=== PATIENT | male | born 1980 | race American Indian/Alaskan Native ===

== ENCOUNTER 2019-08-24 07:42 | Emergency (ER) | payer MEDICAID, OTHER ==
[2019-08-24] MEDS ORDERED: SODIUM CHLORIDE 0.9% 500 ML 500 ML IV ONE (08:04)
--- NOTE | 2019-08-24 08:33 | XRay Report ---
CHEST 2 VIEWS INDICATION: possible Sepsis. COMPARISON: 07/08/2013. FINDINGS: Support devices: None. Heart: Within normal limits. Lungs/Pleura: No acute air space or interstitial disease. No significant pleural effusion. IMPRESSION: No acute findings. Signer Name: Fran Zazueta MD Signed: 08/24/2019 8:29 AM Workstation Name: [id number]
[2019-08-24 08:34] LABS: Basophils % (Auto) 0.1 % (0.0-1.8); Hematocrit 51.9 % (35.5-45.6); Hemoglobin 17.3 gm/dl (11.8-15.2); Lymphocytes # (Auto) 0.5 K/mm3 (1.2-5.4); Lymphocytes % (Auto) 5.9 % (13.4-35.0); Mean Corpuscular HGB Conc 33 % (32-34); Mean Corpuscular Volume 98 fl (84-94); Monocytes # (Auto) 0.6 K/mm3 (0.0-0.8); Platelet Count 177 K/mm3 (140-440); Red Blood Count 5.31 M/mm3 (3.65-5.03); Red Cell Distribution Width 13.5 % (13.2-15.2)
[2019-08-24 08:40] LABS: INR 1.08 (0.87-1.13)
[2019-08-24] MEDS ORDERED: methylPREDNISolone Sod Succinate 125 MG/2 ML INJ IV ONE (08:58)
[2019-08-24] MEDS ORDERED: diphenhydrAMINE 50 MG/ML VIAL IV ONE (08:58)
[2019-08-24] MEDS ORDERED: FAMOTIDINE 20 MG/2 ML INJ IV ONE (08:58)
[2019-08-24] MEDS ORDERED: SODIUM CHLORIDE 0.9% 1000 ML 1,000 ML IV ONE (08:59)
[2019-08-24 09:00] LABS: Alanine Aminotransferase 27 units/L (7-56); Albumin 4.6 g/dL (3.9-5); BUN/Creatinine Ratio 6; Blood Urea Nitrogen 9 mg/dL (9-20); Hemolysis Index 3
[2019-08-24] MEDS ORDERED: IPRATROPIUM 0.02% NEBU 2.5 ML IH ONE (09:15)
[2019-08-24] MEDS ORDERED: LEVALBUTEROL 1.25 MG/3 ML NEB IH ONE (09:15)
--- NOTE | 2019-08-24 09:34 | Emergency Department Report ---
HPI - General Chief Complaint: Dental/Oral Time Seen by Provider: 08/24/19 08:45 - HPI HPI: 39-year-old -[place] male presents to the emergency department with complaint of dental pain and what appears to be an allergic reaction. The patient has been having pain to the left upper posterior jaw/teeth for the past 2-3 days. For this reason he went to [facility] emergency Department yesterday and says that he was prescribed moxifloxacin. He took his first dose of this antibiotic last night and began having swelling of his lips and swelling of his face. He denies any swelling of the tongue, difficulty swallowing, shortness of breath. He did also start having some red itchy bumps to the body. Patient has known allergies to penicillin, vancomycin, clindamycin and azithromycin. Previously was unaware of any allergy to the fluoroquinolone class. He did not take anything for his symptoms today prior to presentation. The patient presented with a very fast heart rate at triage and a code sepsis was initiated prior to my shift beginning. Patient is afebrile. He denies any chest pain or shortness of breath. ED Past Medical Hx - Past Medical History Hx Hypertension: No Hx Congestive Heart Failure: No Hx Diabetes: No Hx Asthma: No Hx COPD: No Hx Tuberculosis: No - Surgical History Hx Pacemaker: No Hx Internal Defibrillator: No - Social History Smoking Status: Never Smoker Substance Use Type: None - Medications Home Medications: Home Medications Medication Instructions Recorded Confirmed Last Taken Type Doxycycline Monohydrate 100 mg PO BID #14 capsule 08/24/19 Unknown Rx predniSONE [Deltasone] 20 mg PO QDAY #3 tab 08/24/19 Unknown Rx ED Review of Systems ROS: Stated complaint: ALLERGIC REACTION Other details as noted in HPI Comment: All other systems reviewed and negative Constitutional: denies: chills, fever Eyes: denies: eye pain, vision change ENT: other (lip and facial swelling). denies: ear pain, throat pain Respiratory: denies: cough, shortness of breath Cardiovascular: denies: chest pain, palpitations Gastrointestinal: denies: abdominal pain, vomiting Genitourinary: denies: dysuria, discharge Musculoskeletal: denies: back pain, arthralgia Skin: rash, pruritus Neurological: denies: headache, weakness Physical Exam - Physical Exam Vital Signs: Vital Signs 08/24/19 08/24/19 07:48 08:49 Temperature 99.3 F Pulse Rate 153 H 120 H Respiratory 16 19 Rate Blood Pressure 121/81 Blood Pressure 132/82 [Right] O2 Sat by Pulse 96 98 Oximetry Physical Exam: GENERAL: The patient is well-developed well-nourished. HEENT: Normocephalic. Atraumatic. Patient has moist mucous membranes. Patient has a broken left upper posterior molar and there is some tenderness to palpation around the tooth and gumline but no visible or palpable abscess. No drooling or trismus. There is very mild right upper lip swelling. EYES: Extraocular motions are intact. Pupils equal and reactive to light bilaterally. NECK: Supple. Trachea is midline CHEST/LUNGS: Clear to auscultation. There is no respiratory distress noted. HEART/CARDIOVASCULAR: Regular. There is mild to moderate tachycardia. ABDOMEN: Abdomen is soft, nontender. Patient has normal bowel sounds. There is no abdominal distention. SKIN: Skin is warm and dry. NEURO: The patient is awake, alert, and oriented. The patient is cooperative. The patient has no focal neurologic deficits. Normal speech. MUSCULOSKELETAL: There is no tenderness or deformity. There is no evidence of acute injury. ED Course Vital Signs 08/24/19 08/24/19 07:48 08:49 Temperature 99.3 F Pulse Rate 153 H 120 H Respiratory 16 19 Rate Blood Pressure 121/81 Blood Pressure 132/82 [Right] O2 Sat by Pulse 96 98 Oximetry ED Medical Decision Making - Lab Data Result diagrams: 08/24/19 08:10 08/24/19 08:10 - Radiology Data Radiology results: image reviewed interpreted by me: Chest x-ray does not show any pneumonia, pneumothorax, focal consolidation, pleural effusions, or any other acute process. - Medical Decision Making This patient presents with some swelling to his upper lip and to the lower portion of the right side of his face since starting moxifloxacin last night for a dental abscess or dental infection. On examination the patient may have some very mild right upper lip swelling. The patient says that his face is slightly swollen but I cannot appreciate this at the time of my examination. There is no drooling or trismus. Patient has a broken left upper posterior molar and there is some tenderness to palpation around this but no visible or palpable abscess. The patient was made a code sepsis before my shift started secondary t o his tachycardia and recent history of possible dental infection. However it appears to be more consistent with a drug reaction. Patient was given IV fluid resuscitation, steroids, Benadryl, Pepcid. His labs were mostly unremarkable. His first lactic acid did come back at 2.6 but I believe this was reactive to his tachycardia. After the patient received a liter of fluid the repeat lactic acid was normal. There was no leukocytosis. He has been afebrile. He did initially presented to triage with a heart rate of 150. It was down to about 125 at the time of my examination. After the patient was treated, and prior to discharge, the tachycardia had resolved. He was reevaluated multiple times for multiple hours and says he is feeling greatly improved. He'll be discharged home on some steroids. He will discontinue the moxifloxacin and will be placed on doxycycline, which he has taken in the past and also had while in the emergency department. He has been instructed to follow up with primary care and a dentist. He will return to the ER with any worsening of his symptoms or any acute distress. - Differential Diagnosis dental abscess, dental infection, allergic reaction, sepsis Critical care attestation.: If time is entered above; I have spent that time in minutes in the direct care of this critically ill patient, excluding procedure time. ED Disposition Clinical Impression: Allergic reaction caused by a drug, Pain, dental, Angioedema Disposition: -01 TO HOME OR SELFCARE Is pt being admited?: No Condition: Stable Instructions: Antibiotic Medication Allergy (ED), Angioedema (ED), Toothache (ED) Additional Instructions: Please follow-up with a primary care physician and a dentist in the next few days. Stop the moxifloxacin. I have started you on doxycycline. Return to the emergency department immediately with any swelling of the lips or tongue, shortness of breath, difficulty swallowing, worsening of your symptoms, or with any acute distress. Prescriptions: predniSONE [Deltasone] 20 mg PO QDAY #3 tab Doxycycline Monohydrate 100 mg PO BID #14 capsule Referrals: PRIMARY CARE, [Primary Care Provider] - 2-3 Days [facility] [Outside] - 2-3 Days [facility] [Outside] - 2-3 Days Time of Disposition: 14:55
[2019-08-24] MEDS ORDERED: DOXYCYCLINE HYCLATE 100 MG in SODIUM CHLORIDE 0.9% 250ML 250 ML IV ONE (13:22)
[2019-08-24 14:55] VITALS: BP 141/122
== END 2019-08-24 15:39 | disposition home or self-care (01) ==
LOC: ED 07:42
DX: T36.8X1A Poisoning by other systemic antibiotics, accidental (unintentional), initial encounter (principal); T78.3XXA Angioneurotic edema, initial encounter; K08.89 Other specified disorders of teeth and supporting structures; Z79.899 Other long term (current) drug therapy; Z88.1 Allergy status to other antibiotic agents; Z88.0 Allergy status to penicillin; Y92.89 Other specified places as the place of occurrence of the external cause
CPT/HCPCS: 36415; 71046; 80053; 82140; 82805; 85025; 85610; 87040; 87086; 93005; 93010; 96365; 96375; 99284; J1200; J2930; J7030; J7040; J7050